=== PATIENT | male | born 2000 | race Caucasian/White ===

== ENCOUNTER 2023-02-27 17:55 | Outpatient (CLI) | payer OTHER, SELFPAY ==
[2023-02-27 23:36] LABS: Chlamydia DNA Amplified* NOT DETECTED (No Detected); GC DNA Amplified* NOT DETECTED (No Detected)
== END 2023-02-27 17:56 | disposition home or self-care (01) ==
LOC: NFLDUCREF 17:56
PROVIDERS: Visit Provider Nurse Practitioner
DX: N48.29 Other inflammatory disorders of penis (principal)
CPT/HCPCS: 87491; 87591

== ENCOUNTER 2023-04-26 12:09 | Emergency (ER) | payer OTHER, SELFPAY ==
[2023-04-26 12:11] VITALS: BP 146/83; PULSE 102; RESP 18; TEMP 37.9; O2SAT 98; BMI 30.6
--- NOTE | 2023-04-26 13:33 | ED_ITS ---
HPI - General Adult General Date Seen: 04/26/23 Chief complaint: Urogenital Problems, Male Stated complaint: genital pain Time Seen by Provider: 04/26/23 13:28 History of Present Illness HPI narrative: 22-year-old male who presents to ER today for evaluation of multiple concerns. He has a history of balanitis and has been and is experiencing redness and inflammation of the skin at the base of the glans of his penis for the past couple of months. He recalls that he has had balanitis about a year ago and was treated with a 2 week course of antifungals which did not help. Subsequently had follow-up with his regular doctor (through the [facility] in [place]) emergency prescribed something that started with a Tri, that also did not work. He has not had any ulcers or blisters on his penis. No pain. No urethral discharge. No trauma. He is not currently sexually active and has not been for many months. He also notes that he has had a small lump on the posterior aspect of his right testicle that have been there for a year or 2. He recalls that he had an ultrasound for that done at the ER in [place] and was told it was a ?cyst? on the testicle. That still there and may have gotten slightly bigger in the past month or 2, since . Also for the past few weeks he has noted a small white lump on the skin on the right side of his scrotum.. After his most recent urgent care visit he was told to follow-up primary care and Urology for recheck but did not do so. He is more concerned now because the lump on his testicles not going away and the redness on the glans of his penis isn't going away. He actually called his clinic today to arrange an appointment but then decided to come here. He is worried that the lump on his scrotum might affect future fertility. None of his symptoms are worse today than the past couple of weeks, he is just concerned about them and does not want anything to deteriorate. He is not actually having any testicular or scrotal pain today. He was seen in the urgent care in February 2023 and diagnosed with balanitis. Last intercourse had been about 9 months prior to that visit. He had STI screening done in the urgent care and was negative for gonorrhea and chlamydia. Urinalysis was normal. Recommended topical clotrimazole cream twice daily for 2 weeks. He had a previous visit to the ER in March 2022. Scrotal ultrasound from 03/14/2022 from [facility] ([facility] FINDINGS: Right testicle: 3.5 centimeter x 2.7 centimeter x 1.7 centimeter. Normal echotexture. No masses. Right-sided testicular microlithiasis. Normal arterial and venous and blood flow using Doppler and spectral waveform analysis. ? Left testicle: 0.7 centimeter x 2.5 centimeters x 1.8 centimeter. Normal echotexture. No masses. Sided testicular microlithiasis. Normal arterial and venous and blood flow using Doppler and spectral waveform analysis. ? Epididymis: 7 millimeter right epididymal cyst. Normal blood flow. ? Other: No sign of hydrocele. No sign of varicocele. Scrotal wall is normal. ? IMPRESSION: Bilateral testicular microlithiasis. ? No evidence for testicular masses or testicular torsion. ? 7 millimeter epididymal cyst. Related Data Previous Rx's Medication Instructions Recorded hydrocortisone 1 % topical cream 1 applic topical BID PRN 14 days 04/26/23 #28.35 grams Allergies Allergy/AdvReac Type Severity Reaction Status Date / Time No Known Drug Allergies Allergy Verified 04/26/23 12:18 [facility] Social History Smoking Status: Smoker, status unknown Do you use any of these nicotine containing products: None Second hand tobacco smoke exposure: No How often do you have a drink containing alcohol: never How often do you have six or more drinks on one occasion: Never AUDIT-C Alcohol total score: 0 Non-prescribed substance use: denies use service: No Exam Narrative: Exam Narrative: Constitutional: Appears well-developed and well-nourished. Alert. Conversant. Non toxic. HENT: Head: Atraumatic. Nose: Nose normal. Mouth/Throat: Oral mucosa is clear and moist. no trismus. Eyes: Conjunctivae normal. EOM normal. Pupils equal, round, and reactive to light. No scleral icterus. Neck: Normal range of motion. Neck supple. No tracheal deviation present. Cardiovascular: Normal rate, regular rhythm. Pulmonary/Chest: Effort normal. No stridor. No respiratory distress. Abdominal: Soft.No distension. No mass. No tenderness. No rebound. No guarding. : No inguinal masses. No inguinal tenderness. No inguinal adenopathy. Circumcised penis. There is no chancres or vesicles or rash. There is very subtle erythema affecting a small rim of tissue on the dorsal surface of the glans of the penis. This could be mild balanitis. No purulent discharge. External urethra is normal. Ventral surface of the penis is normal. Inspection of the scrotum reveals a small 1 x 2 mm white papule on the skin consistent with an ingrown hair. There is no evidence for any surrounding cellulitis or abscess. Palpation of the testicles reveals bilaterally descended testicles but both seem to be little bit high in the scrotum. I have difficulty palpating the right scrotal mass until the patient points it out and there is a small pea- sized nontender nodule adjacent to the patient's right epididymis (which would correlate on the epididymal cyst noted on ultrasound last year through ). No other palpable lesions. No testicular tenderness or scrotal pain. Perineum is normal. Medial thighs are normal. Musculoskeletal: RUE: Normal range of motion.No deformity LUE: Normal range of motion. No deformity RLE: Normal range of motion. No edema. No deformity LLE: Normal range of motion. No edema. No deformity Lymph: No inguinal adenopathy. Neurological: Alert and oriented to person, place, and time. Normal strength. CN II-VII intact. No sensory deficit. GCS eye subscore is 4. GCS verbal subscore is 5. GCS motor subscore is 6. Normal coordination Skin: Skin is warm and dry. No rash noted. No pallor. Normal capillary refill. Psychiatric: Normal mood. Normal affect. Const: Vital Signs, click to edit/add: Vital Signs - 24 hr 04/26/23 12:11 Temperature 100.3 F H Pulse Rate [Pulse Oximeter] 102 H Respiratory Rate 18 Blood Pressure [Ri ght Upper Arm] 146/83 H Pulse Oximetry 98 Oxygen Delivery Me thod Room Air Course Vital Signs Vital signs: Initial Vital Signs Temperature 100.3 F H 04/26/23 12:11 Temperature Source Temporal Artery Scan 04/26/23 12:11 Pulse Rate 102 H 04/26/23 12:11 Respiratory Rate 18 04/26/23 12:11 Blood Pressure 146/83 H 04/26/23 12:11 Blood Pressure Mean 104 04/26/23 12:11 Blood Pressure Position Sitting 02/15/24 12:11 Pulse Oximetry 98 04/26/23 12:11 Oxygen Delivery Method Room Air 04/26/23 12:11 Vital Signs Temperature 100.3 F H 04/26/23 12:11 Pulse Rate 102 H 04/26/23 12:11 Respiratory Rate 18 04/26/23 12:11 Blood Pressure 146/83 H 04/26/23 12:11 Pulse Oximetry 98 04/26/23 12:11 Oxygen Delivery Method Room Air 04/26/23 12:11 Temperature 100.3 F H 04/26/23 12:11 Pulse Rate 102 H 04/26/23 12:11 Respiratory Rate 18 04/26/23 12:11 Blood Pressure 146/83 H 04/26/23 12:11 Pulse Oximetry 98 04/26/23 12:11 Oxygen Delivery Method Room Air 04/26/23 12:11 Medical Decision Making MDM Narrative Medical decision making narrative: 22-year-old male with multiple complaints and around his genitals. 1. His most acute complaint is that he has noted a small white papule on the skin of his scrotum that is been there for the past couple weeks. Clinical exam is consistent with an ingrown hair. There is no evidence for any abscess or cellulitis or scrotal infection. No evidence for Mónica's gangrene. Reassurance provided. Recommended watchful waiting. 2. He has also had a small nodule (diagnosis an epididymal cyst on ultrasound in March 2022) affecting his right testicle. It has been there for the past year to. He has not yet followed up with urology. He is not having any new pain in the testicle or other symptoms to suggest epididymitis, orchitis, or torsion. At this point I do not think he needs repeat ultrasound. He has already had normal urinalysis than STD testing. With no acute change in that epididymal cyst I doubt that would represent an epididymal abscess. At this point no need for any new antibiotics or immediate surgical intervention. Encouraged him to follow up with Urology, as been had recommended the past. 3. He is also concerned because he has some redness at the base of the glans of his penis that is been there for the past couple of months. Clinical impression could represent possible balanitis. There is no purulent discharge or any other clear evidence for active infection. He has already failed a course of treatment with topical antifungal therapy. Try him on topical corticosteroid cream-1% hydrocortisone twice daily for 2 weeks. Recommend close outpatient follow-up with primary and ultimate follow-up with urology. If this does not respond to steroid therapy, may need further evaluation by specialist. He says he has already been told that he might need to see a investor relations analyst. He is not currently sexually active. He has had 2- STD screens over the past year. At this point would not repeat STD testing. Patient in full agreement.. Discharge Plan Discharge Clinical Impression: Epididymal cyst, Balanitis Patient Disposition: Home, Self-Care Condition: Stable Instructions: Maryan (ED) Additional Instructions: As we discussed, please call your regular doctor today to arrange a follow-up appointment so you can get a referral to Urology. Please see a urologist as soon as possible to recheck for the epididymal cyst on your right testicle. They may want to do a follow-up ultrasound, and to monitor it to make sure it does not grow in the future. You can ask the urologist if there are options for surgical removal of the cyst For the inflammation around the glans of the penis, use the hydrocortisone cream twice daily for 2 weeks. Prescriptions: New hydrocortisone 1 % cream 1 applic topical BID PRN14 Days Qty: 28.35 0RF Follow Up/Referrals: Provider,Not a Local [Primary Care Provider] - Stand Alone Forms: [facility] Info Instructions
== END 2023-04-26 14:57 | disposition home or self-care (01) ==
PROVIDERS: Emergency Provider Emergency Medicine
DX: N48.1 Balanitis (principal)
CPT/HCPCS: 99282; 99283

== ENCOUNTER 2024-09-03 07:39 | Emergency (ER) | payer BC, SELFPAY ==
--- OUTSIDE RECORDS SUMMARY | 2024-09-03 07:41 | XMS_ITS | Clinical Summary ---
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 For routine questions regarding patient records, call [phone] during business hours, M-F 8:00 AM - 5:00 PM Central Time. Record requests for emergency care only can be directed to [phone] at any time.[facility] Allergies Active Allergy Reactions Criticality Noted Date Comments Pollen Extracts Other (see comments) Medium 11/21/2014 patient takes Loratadine but does not Medications * This document contains information received from the source organization and may not represent a complete record from that organization. ketoconazole (Nizoral) 2 % shampoo Apply 1 Application topically 3 (three) times a week. Apply to damp skin, lather, leave on 5 minutes, and rinse 120 mL 4 Active Active Problems No known active problems Immunizations Immunization Administration Dates Next Due 9vHPV 05/02/2017,04/10/2016 DTaP (Infanrix, [employer]) 08/28/2007,01/2003,2002,2002 DTaP / Hib 12/14/2003 DTaP, Unspecified 01/20/2003,2002,09/23/19 03 HepA Pediatric/Adolescent 07/20/2009,10/29/2008 HepB Pediatric/Adolescent 05/19/2003 Hib-HepB 2002,2002 IPV 08/28/2007, 4,2002,2002 Influenza TIV (IM) 12/02/2014, 3,12/13/2011,2007,02/01/2007 Influenza, Seasonal, Injectable 12/03/19 15,12/10/2012,12/13/2011,2007,02/01/2007 MCV4 (Menactra)(Discontinued) 10/21/2019, 014 MCV4 (Menveo) 07/24/2013 MMR 08/28/2007,09/01/2003 MenB (BEXSERO) 01/24/2022,10/21/2019 PCV20 01/24/2022 PCV7 (discontinued) 12/14/2003, 3,2002,2002 Tdap 09/03/2012 MIL 08/28/2007,09/01/2003 influenza trivalent vaccine (6 months and older)(PF) 12/13/2010,11/27/2008 influenza vaccine quad (FLUZONE/FLUARIX) (6 months and older)(PF) 01/24/2022,01/14/2020,04/10/2016,2013 Social History Tobacco Use Types Packs/Day Years Used Date Smoking Tobacco: Some Days Cigarettes E-cigarettes Last attempt ed to quit: 06/12/2018 Tobacco Cessation:Ready to Q uit: Not Asked; Counseling Given: Not Answered Alcohol Use Standard Drinks/Week Comments Not Currently 0 (1 standard drink = 0.6 oz pur e alcohol) Sex and Gender Information Value Date Recorded Sex Assigned at Not on file 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 Gender Identity Not on file Sexual Orientation Not on file Last Filed Vital Signs Vital Sign Reading Time Taken Comments Blood Pressure 136/68 07/24/2023 3:10 PM CDT Pulse 72 07/24/2023 3:10 PM CDT Temperature 36.9 C (98.4 F) 07/24/2023 3:10 PM CDT Respiratory Rate 18 07/24/2023 3:10 PM CDT Oxygen Saturation 99% 01/24/2022 1:43 PM 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 Inhaled Oxygen Concentration - - Weight 108 kg (238 lb 8.6 oz) 07/24/2023 3:10 PM CDT Height 184 cm (6' 0.44) 07/24/2023 3:10 PM CDT Body Mass Index 31.96 07/24/2023 3:10 PM CDT Plan of Treatment Health Maintenance Due Date Last Done Comments Hepatitis C Screening 2002 COVID-19 Vaccine (1 - 2023-2 5 season) 2023 Influenza Vaccine (#1) 2023 , 01/14/2020, 04/10/2016, Additional history exists Depression Screening (Annual PHQ-2) 03/12/2024 Tobacco Cessation counseling 10/03/2024 10/04/2023, 01/24/2022 DTaP,Tdap,and Td Vaccines (8 - Td or Tdap) 05/21/2033 05/22/2023, 09/03/2012, 08/28/2007, Additional history exists Hepatitis B Vaccines Completed 05/19/2003, 2002, 2002 IPV Vaccines Completed 08/28/2007, 11/2003, 2002, Additional history exists HPV Vaccines Completed 05/02/2017, 04/10/2016 Meningococcal Vaccine Completed 10/21/2019 , 07/24/2013, 07/24/2013 MenB Vaccine Completed 01/24/2022, 10/21/2019 Pneumococcal vaccine (0-49 years) Completed 01/24/2022, 12/14/2003, 01/20/2003, Additional history exists Insurance [facility] Care Teams 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
[2024-09-03 07:51] VITALS: BP 126/84; PULSE 77; RESP 18; TEMP 36.4; O2SAT 99; BMI 30.2
--- NOTE | 2024-09-03 08:00 | ED_ITS ---
HPI - General Adult General Date Seen: 09/03/24 Chief complaint: Arrhythmia/Palpitations Stated complaint: rechecked on his heart palpitations Time Seen by Provider: 09/03/24 07:52 History of Present Illness HPI narrative: 24-year-old male presenting to the ER today with concern for palpitations and anxiety. Patient reports that he has no trouble with palpitations and occasional extra heartbeat where he feels his heart beating hard like a door slamming N/C and side of his chest and then pausing. This happens occasionally and never in runs. It has been going on for a few years, perhaps 3 or 4 years. He is not really sure. It has been getting worse lately and in particular he notes that when he sleeping. He says he is really having trouble sleeping because when he feels his heart beating irregularly he gets anxious and has a panic attack. He has already had a workup through his doctor's office. He does not really know his doctor's name or which office there through but with questioning were able to determine that his primary care provider is actually at the [facility] here in [place]. He thinks he had a ZIO patch and some labs a month or 2 ago. Says that his doctor told him that the ZIO patch showed that he was having ?palpitations? but no arrhythmias. He thinks his labs were probably normal. He was given a prescription for parental all that he could use as needed. He does not really like taking pills so has not been taking it. For the past several days he has been more anxious about his palpitations and feeling more at night so he has been having trouble sleeping and as result feels very unenergetic and down during the day. He set up to have an echocardiogram which is scheduled for a couple of weeks but he so worried about his palpitations he does not think he can wait. Although he does not like taking pills he did take a propranolol this morning before coming in and now feels like his palpitations are gone. I was able to access the patient's records through [facility] [employer] care link. It looks like he had a Zio patch that resulted on July 25. Per the report of that Zio patch he had no episodes of ventricular fibrillation, no long pauses, no AV block, no atrial fibrillation. He had a minimal heart rate of 41 and a maximum heart rate of 174 with an average heart rate of 87. Predominant underlying rhythm was sinus. He had isolated supraventricular ectopies less than 1% of the time with isolated supraventricular couplets and supra ventricular triplets. Also a few isolated ventricular ectopies. He had labs on August 11. Sodium 139, potassium 5.1, chloride 104, bicarb 27, BUN 19, creatinine 0.87, calcium 9.8, glucose 92. WBC 6.8, hemoglobin 17.4, platelet count 280. He had nonreactive hepatitis-C antibody, nonreactive HIV 1 and 2, TSH was normal at 1.99. He had an EKG on 07/14/2024. It shows sinus rhythm with marked sinus arrhythmia. Rate was 88. WA interval 136. No delta waves. No ST segment elevation or depression. QTC was 430. I do not see any PACs or PVCs on this EKG. Related Data Home Medications ?Medication ?Instructions ?Recorded ?Confirmed propranolol 10 mg tablet mg PO 09/03/24 Previous Rx's ?Medication ?Instructions ?Recorded metoprolol succinate 25 mg 12.5 mg (1/2 x 25 mg) PO HS #14 09/03/24 tablet,extended release 24 hr tabs Allergies Allergy/AdvReac Type Severity Reaction Status Date / Time No Known Drug Allergies Allergy Verified 08/18/24 09:24 [facility] Social History Smoking Status: Smoker, status unknown Do you use any of these nicotine containing products: None Second hand tobacco smoke exposure: No How often do you have a drink containing alcohol: never How often do you have six or more drinks on one occasion: Never AUDIT-C Alcohol total score: 0 Non-prescribed substance use: denies use service: No Exam Narrative: Exam Narrative: Constitutional: Appears well-developed and well-nourished. Alert. Conversant. Non toxic. HENT: Head: Atraumatic. Nose: Nose normal. Mouth/Throat: Oral mucosa is clear and moist. no trismus. Pharynx normal. Tonsils symmetric. No tonsillar enlargement, erythema, or exudate. Eyes: Conjunctivae normal. EOM normal. Pupils equal, round, and reactive to light. No scleral icterus. Neck: Normal range of motion. Neck supple. No tracheal deviation present. Thyroid normal. Cardiovascular: Normal rate, regular rhythm. No gallop. No friction rub. No murmur heard. Symmetric radial artery pulses Pulmonary/Chest: Effort normal. No stridor. No respiratory distress. No wheezes. No rales. No rhonchi . No tenderness. Abdominal: Soft. Bowel sounds normal. No distension. No mass. No tenderness. No rebound. No guarding. Musculoskeletal: RUE: Normal range of motion. No tenderness. No deformity LUE: Normal range of motion. No tenderness. No deformity RLE: Normal range of motion. No edema. No tenderness. No deformity LLE: Normal range of motion. No edema. No tenderness. No deformity Neurological: Alert and oriented to person, place, and time. Normal strength. CN II-VII intact. No sensory deficit. GCS eye subscore is 4. GCS verbal subscore is 5. GCS motor subscore is 6. Normal coordination Skin: Skin is warm and dry. No rash noted. No pallor. Normal capillary refill. Psychiatric: Normal mood. Flat affect. Endorses a lot of anxiety last night when he was feeling palpitations inside now is for endorsing frustration. Const: Vital Signs, click to edit/add: Vital Signs - 24 hr 09/03/24 07:51 Temperature 97.6 F Pulse Rate [Pulse Oximeter] 77 Respiratory Rate 18 Blood Pressure [Ri ght Upper Arm] 126/84 Pulse Oximetry 99 Oxygen Delivery Me thod Room Air Course Vital Signs Vital signs: Initial Vital Signs Temperature 97.6 F 09/03/24 07:51 Temperature Source Temporal Artery Scan 09/03/24 07:51 Pulse Rate 77 09/03/24 07:51 Respiratory Rate 18 09/03/24 07:51 Blood Pressure 126/84 09/03/24 07:51 Blood Pressure Mean 98 09/03/24 07:51 Blood Pressure Position Sitting 09/03/24 07:51 Pulse Oximetry 99 09/03/24 07:51 Oxygen Delivery Method Room Air 09/03/24 07:51 Vital Signs Temperature 97.6 F 09/03/24 07:51 Pulse Rate 77 09/03/24 07:51 Respiratory Rate 18 09/03/24 07:51 Blood Pressure 126/84 09/03/24 07:51 Pulse Oximetry 99 09/03/24 07:51 Oxygen Delivery Method Room Air 09/03/24 07:51 Temperature 97.6 F 09/03/24 07:51 Pulse Rate 77 09/03/24 07:51 Respiratory Rate 18 09/03/24 07:51 Blood Pressure 126/84 09/03/24 07:51 Pulse Oximetry 99 09/03/24 07:51 Oxygen Delivery Method Room Air 09/03/24 07:51 Medical Decision Making MDM Narrative Medical decision making narrative: This patient presents for evaluation of palpitations. Initial ECG shows normal sinus rhythm and no dysrhythmogenic abnormality such as WPW, prolonged QT, Brugada syndrome, and no ischemia. He has already had an outpatient Zio patch which showed no dangerous arrhythmias but did show infrequent PACs and PVCs cheek. He is already been prescribed propranolol by his PCP. He was having a lot of these extra beats overnight last night so he took propranolol this morning prior to coming in and now the extra beats are gone. As a result his EKG here in the ER is normal with no PACs or PVCs. He does not like the way the propranolol makes him feel. He also did in general does not like taking any medications. He came to the ER because he just could not sleep last night and could go to work today and he is frustrated that his extra heartbeats are still there. A broad differential diagnosis was considered including SVT, Atrial fibrill ation, ventricular arrhythmia, thyroid disease, acute electrolyte abnormality, drugs/medications, caffeine intake or other stimulants, medication side effect, anemia, heart disease, PE, among others. He has already had outpatient workup with labs that were normal therefore repeating them here today is not likely to be beneficial. He does not drink caffeine or take any stimulants. He does use marijuana fairly regularly. It sounds like he used to smoke heavily but has been cutting back in recent years. I advised him to try cutting out marijuana altogether to see if that would help, and perhaps after he ceases, these extra heartbeats will go away entirely. I recommend that he follow-up with his PCP for recheck. He is scheduled to have an outpatient echo. He actually had 1 a couple years ago that was normal so I think overall suspicion for structural heart disease or hypertrophic cardiomyopathy is low. However would be reasonable to get a repeat echo given current symptoms. In discussion with the patient we decided that we could try different beta- chester. He feels like the propranolol makes him feel too tired and too weak. Of note his EKG shows a heart rate of 67 this morning and his average heart rate when he was wearing the Zio patch was 81. This does suggest some beta-chester induced decreased heart rate which may be causing his fatigue. Try switching him for parietal to metoprolol at a low dose. Patient understands that he needs to follow up with his PCP to see if this new beta-chester is working better (or not) and have further medications/dose adjustments. Patient also notes that there is significant underlying anxiety that gets triggered when he feels the palpitations. At this point rather than putting him on anxiety med, will focus on trying to suppress extra heartbeats with beta- blockers. The workup and exam here in ED shows not specific cause of the patient's palpitations, and no risks factors to warrant admission. Clinical judgement sugg ests that supportive outpatient management is indicated. He will follow up with his PCP. ECG Data Attestation: I personally reviewed and interpreted this ECG as follows: Interpretation: Normal sinus rhythm Rate: 67 WA: 146 no delta waves. QRS axis: Normal axis. No pathologic Q-waves. ST segment/T wave: No ST segment elevation or depression. QTc: 401 Discharge Plan Discharge Clinical Impression: Palpitations Patient Disposition: Home, Self-Care Condition: Stable Instructions: Heart Palpitations (DC), Premature Ventricular Contractions (ED), Premature Atrial Contractions (ED) Additional Instructions: As we discussed, monitor your symptoms carefully and if you have any worsening symptoms or problems, come back to the ER right away. We will try to suppress these palpitations by beta-blockers. Will have him switch from propranolol (he does not like the feeling he gets when he takes a) and try a low-dose of metoprolol instead. Please follow-up with your regular doctor the [facility] as soon as possible to recheck to see how you are doing. Your doctor may have to make further adjustments to her medications or change the dose to help get you feeling better. Please stop using marijuana and try to be completely sober from marijuana for a couple of months. This may help prevent or reduce the frequency of your palpitations. Prescriptions: New metoprolol succinate 25 mg tablet extended release 24 hr 12.5 mg PO HS Qty: 14 0RF No Action propranolol 10 mg tablet PO Follow Up/Referrals: Provider,Not a Local [Primary Care Provider, Family Practice] Stand Alone Forms: Work/School Release, MyHealth Info Instructions
--- OUTSIDE RECORDS SUMMARY | 2024-09-03 09:24 | XMS_ITS | Clinical Summary ---
Author Organization [facility] Address [address] [place] [address] Care Team Providers Care Aerospace Technician Name Role Phone Juan F Penn MD Primary Care P rovider Allergies Active Allergy Reactions Criticality Noted Date Comments Pollen Extracts Other - Describe In Comment Field Medium 11/21/2014 patient takes Loratadine but does not Medications ketoconazole 2% shampoo 2 % shampoo Apply 1 Application topically to affected area(s). 4 Active propranoloL 10 mg tabletIndicatio ns:Palpitations Take 1 Tablet (10 mg) by mouth one time if needed (take up to 3x per day if palpiations or anxious) for up to 1 dose. 30 Tablet 5 Active Active Problems Problem Noted Date Diagnosed Date Snoring 08/11/2024 Palpitations 08/11/2024 Encounters Date Type Department Care Team Description 09/02/[address] [facility] [address] [place] [address] Juan F Penn MD Questions (Propranolol ) 09/02/[address] [facility] [address] [place] [address] Juan F Penn MD Palpitations 08/12/[address] [facility] [address] [place] [address] Juan F Penn MD Results 08/11/2024 7:30 AM CDT Office Visit [facility] [address] [facility] [place] [address] Juan F Penn MD Results (Zio patch) 08/11/2024 Travel 08/07/2024 Patient Outreach [facility] Care Management - Care Management Navigation/[facility] [address] [place] [address] [facility] Navigation 08/07/[address] [facility] [address] [place] [address] Koki Raza PA Results [address] [facility] [address] [facility] [place] [address] Koki Raza PA 1 scan: (1-Ord) NFLD-EKG-5.5.25 07/14/2024 10:40 AM CDT Office Visit [facility] [address] [facility] [place] [address] Koki Raza PA Palpitations 07/14/2024 8:15 AM CDT Office Visit [address] [place] [address] 07/14/2024 Travel 07/14/[address] [facility] [address] [place] [address] Clinic, No Pcp Or Palpitations from Last 3 Months Immunizations Immunization Administration Dates Next Due DTaP 08/28/2007, 3,2002,09/22 DTaP-HIB (TriHIBIT) 12/14/2003 Dtap Unspecified Formulation 01/20/2003,11/19/19 03,2002 HIB-HepB (Comvax) 2002,2002 HPV 9 (Gardasil 9) 05/02/2017,04/10/2016 Hepatitis A (Peds) 07/20/2009,10/29/2008 Hepatitis B (Peds) 05/19/2003 Inactivated Polio Vaccine 08/28/2007,11/2003,2002,09/22 Influenza, IIV3 (Age 6-35 mos) 12/13/2010,2008 Influenza, IIV3 (Age >=3 years) 12/03/19 15,12/10/2012,12/13/2011,01/23,02/01/2007 Influenza, IIV4 01/24/2022,,04/10/2016,01/07 MENINGOCOCCAL VACCINE 2 VIAL 2MO-55YO (MENVEO) 07/24/2013 MMR 08/28/2007,09/01/2003 Meningococcal B 01/24/2022,10/21/2019 Meningococcal Vaccine (Menactra) 10/21/2019,07/10 Pneumococcal Conj 20-valent (Prevnar 20) 01/24/2022 Pneumococcal conj 7-Valent (Prevnar 7) 1 ,01/20/2003,2002,09/22 Tdap 05/22/2023,09/03/2012 Varicella Vaccine 08/28/2007,09/01/2003 Family History Medical History Relation Name Comments pacemaker Maternal Grandfather Relation Name Status Comments Maternal Grandfather Social History Tobacco Use Types Packs/Day Years Used Date Smoking Tobacco: Former Cigarettes Passive Smoke Exposure: Past Smokeless Tobacco: Never Tobacco Cessation:Counseling Given: Not Answered Comments:smoked from 14 years old to 17 years old Alcohol Use Standard Drinks/Week Comments Not Currently 0 (1 standard drink = 0.6 oz pur e alcohol) PHQ-2 Answer Date Recorded PHQ-2 TOTAL SCORE 0 08/11/2024 Social Connections Answer Date Recorded Do you often feel lonely or isolated from those around you? 0 07/14/2024 Financial Resource Strain Answer Date R ecorded Difficulty of Paying Living Expenses 2 07/14/2024 Difficulty of Paying Living Expenses 1 07/14/2024 Food Insecurity Answer Date Recorded Do you worry your food will run out before you are able to buy more? 1 07/14/2024 Transportation Needs Answer Date Record ed Does lack of transportation keep you from medica l appointments? 1 07/14/2024 Does lack of transportation keep you from work, meetings or getting things that you need? 1 07/14/2024 Housing Stability Answer Date Recorded What is your housing situation today? 1 07/14/2024 Utilities Answer Date Recorded Do you have trouble paying f or utilities (for example, heat, electricity, water, phone)? 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 Gender Identity Not on file Sexual Orientation Not on file Obstetrics History Last Filed Vital Signs Vital Sign Reading Time Taken Comments Blood Pressure 132/81 08/11/2024 7:37 AM CDT Pulse 71 08/11/2024 7:37 AM CDT Temperature 37 C (98.6 F) 12/18/2022 5:26 PM CDT Respiratory Rate 20 12/18/2022 5:26 PM CDT Oxygen Saturation 98% 08/11/2024 7:37 AM CDT Inhaled Oxygen Concentration - - Weight 106.1 kg (234 lb) 08/11/2024 7:37 AM CDT Height 188 cm (6' 2) 03/13/2024 3:37 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 [address] [place] [address] Juan F Penn MD [address] [place] [address] Health Maintenance Due Date Last Done Comments COVID-19 vaccine series ( season) 2023 Influenza Vaccine (Season Ended) 2024 01/24/2022, 01/14/2020, 04/10/2016, Additional history exists BMI (ht and wt on same day) for age 18+ 03/13/2025 03/13/2024 Depression screening for age 12+ 08/11/2025 08/11/2024, 05/22/2023 Tetanus booster 05/21/2033 05/22/2023, 09/03/2012 Hepatitis B series for 19+ Completed 05/18, 2002, 2002 HPV series for age 9-26 Completed 05/02/2017, 04/10 Pneumococcal series for age 6-49 Aged Out 01/24/2022, 12/14/2003, 01/20/2003, Additional history exists No longer eligible based on patient's age to complete this topic Tdap Completed 05/22/2023, 09/03/2012 HIV for age 15-65 Completed 08/11/2024 Hepatitis C screening for age 18-79 Completed 08/11/2024 Procedures Procedure Name Priority Date/Time Associated Diagnosis Comments TSH WITH REFLEX Routine 08/11/2024 8:55 AM CDT Palpitations BASIC METABOLIC PANEL Routine 08/11/2024 8:55 AM CDT Palpitations CBC W PLT NO DIFF Routine 08/11/2024 8:5 5 AM CDT Palpitations ANTI HIV 1/2 Routine 08/11/2024 8:55 AM CDT Screening for HIV (human immunodeficiency virus) ANTI HCV Routine 08/11/2024 8:55 AM CDT Need for hepatitis C screening test EXTENDED HOLTER Routine 07/16/2024 Palpitations EKG 12 LEAD Routine 2024 11:16 AM CDT Palpitations MS READING EKG - NO CHARGE, COMP ONLY Routine 2024 11:15 AM CDT Palpitations from Last 3 Months Results * TSH WITH REFLEX (08/11/2024 8:55 AM CDT) TSH W/REFLEX TO FT4 1.99 0.40 - 4.50 mIU/L [facility] Blood BLOOD SPECIMEN / Unknown 08/11/2024 8:55 AM CDT 08/11/2024 8:57 AM CDT Juan F Penn MD CHEMISTRY Final Result [facility] [address] [place] [address], [place] [phone] [facility] [address] [place] [address] * ANTI HCV (08/11/2024 8:55 AM CDT) Pathologist [facility] HEPATITIS C ANTIBODY NON-REACTI VE NON-REACT MELIA [facility] Comment: HCV antibody was non-reactive. There is no laboratory evidence of HCV infection. In most cases, no further action is required. However, if recent HCV exposure is suspected, a test for HCV RNA (test code 90225) is suggested. For additional information please refer to http://education.Markit/faq/DRS75h2 (This link is being provided for informational/ educational purposes only.) Blood BLOOD SPECIMEN / Unknown 08/11/2024 8:55 AM CDT 08/11/2024 8:57 AM CDT Juan F Penn MD SEND OUTS Final Result Performing Organization Address City/[facility]/ZIP Co de Phone Number [facility] [address] [place] [address], [facility] [address] [place] [address] * (ABNORMAL) CBC W PLT NO DIFF (08/11/2024 8:55 AM CDT) [facility] WHITE BLOOD CELL COUNT 6.8 3.8 - 10.8 Thousand/u L [facility] RED BLOOD CELL COUNT 5.32 4.20 - 5.80 Million/uL [facility] HEMOGLOBIN 17.4(H) 13.2 - 17.1 g/dL [facility] HEMATOCRIT 51.5(H) 38.5 - 50.0 % [facility] MCV 96.8 80.0 - 100.0 fL [facility] MCH 32.7 27.0 - 33.0 pg [facility] MCHC 33.8 32.0 - 36.0 g/dL [facility] Comment: For adults, a slight decrease in the calculated MCHC value (in the range of 30 to 32 g/dL) is most likely not clinically significant; however, it should be interpreted with caution in correlation with other red cell parameters and the patient's clinical condition. RDW 12.2 11.0 - 15.0 % [facility] PLATELET COUNT 280 140 - 400 Thousand/u L [facility] MPV 10.1 7.5 - 12.5 fL [facility] Blood BLOOD SPECIMEN / Unknown 08/11/2024 8:55 AM CDT 08/11/2024 8:57 AM CDT Juan F Penn MD HEMATOLOGY Final Result [facility] [address] [place] [address], [facility] [address] [place] [address] * ANTI HIV 1/2 [84187.0] (08/11/2024 8:55 AM CDT) HIV AG/AB, 4TH GEN NON-REACT MELIA NON-REACT MELIA [facility] Comment: HIV-1 antigen and HIV-1/HIV-2 antibodies were not detected. There is no laboratory evidence of HIV infection. PLEASE NOTE: This information has been disclosed to you from records whose confidentiality may be protected by state law. If your state requires such protection, then the state law prohibits you from making any further disclosure of the information without the specific written consent of the person to whom it pertains, or as otherwise permitted by law. A general authorization for the release of medical or other information is NOT sufficient for this purpose. For additional information please refer to http://education.Markit/faq/HJF482 (This link is being provided for informational/ educational purposes only.) The performance of this assay has not been clinically validated in patients less than 2 years old. Blood BLOOD SPECIMEN / Unknown 08/11/2024 8:55 AM CDT 08/11/2024 8:57 AM CDT Juan F Penn MD SEND OUTS Final Result [facility] [address] [place] [address], [facility] [address] [place] [address] * BASIC METABOLIC PANEL (08/11/2024 8:55 AM CDT) [facility] GLUCOSE 92 65 - 99 mg/dL [facility] Comment: Fasting reference interval UREA NITROGEN (BUN) 19 7 - 25 mg/dL [facility] CREATININE 0.87 0.60 - 1.24 mg/dL [facility] EGFR 125 > OR = 60 mL/min/1. 73m2 [facility] BUN/CREATININE RATIO SEE NOTE: 6 - 22 (calc) [facility] Comment: Not Reported: BUN and Creatinine are within reference range. SODIUM 139 135 - 146 mmol/L [facility] POTASSIUM 5.1 3.5 - 5.3 mmol/L [facility] CHLORIDE 104 98 - 110 mmol/L [facility] CARBON DIOXIDE 27 20 - 32 mmol/L [facility] ELECTROLYTE BALANCE 8 7 - 17 mmol/L (calc) [facility] CALCIUM 9.8 8.6 - 10.3 mg/dL [facility] Blood BLOOD SPECIMEN / Unknown 08/11/2024 8:55 AM CDT 08/11/2024 8:57 AM CDT Juan F Penn MD CHEMISTRY Final Result [facility] [address] [place] [address], [place] [phone] [facility] [address] [place] [address] * ZIO PATCH XT - weekly to monthly symptoms. (07/16/2024) [facility] ORD F inal Result * EKG 12 LEAD (2024 11:16 AM CDT) Koki RUBIO EKG ORD Final Result * MS READING EKG - NO CHARGE, COMP ONLY (2024 11:15 AM CDT) Koki RUBIO PB - PROVIDER READINGS Final Result from Last 3 Months Additional Health Concerns Infection Onset Date Last Indicated Rule-Out Influenza 01/23/2022 01/23/2022 Insurance [employer] Care Teams Aerospace Technician Relationship Specialty Start Date End Date Juan F Penn MD [address] [place] [address] PCP - General Family Practice 08/11/24
== END 2024-09-03 09:09 | disposition home or self-care (01) ==
LOC: ED 09:13
PROVIDERS: Emergency Provider Emergency Medicine
DX: R00.2 Palpitations (principal)
CPT/HCPCS: 93005; 99283; 99284

== ENCOUNTER 2025-03-05 18:03 | Emergency (ER) | payer BC, SELFPAY ==
--- OUTSIDE RECORDS SUMMARY | 2025-03-05 18:08 | XMS_ITS | Clinical Summary ---
Author Organization [employer] [facility] Address [address] [place] [address] Care Team Providers Care Snuff Blender Name Role Phone Juan F Penn MD Primary Care P rovider Allergies Active AllergyReactionsCriticalityNoted DateCommentsPollen ExtractsOther - Describe In Comment AeirdDtndrd31/12/2015 patient takes Loratadine but does not Medications MedicationSigDispense QuantityRefillsLast FilledStart DateEnd DateStatus ketoconazole 2% shampoo 2 % shampoo Apply 1 Application topically to affected area(s).4Active sertraline (ZOLOFT) 25 mg tablet Indications:DIMA (generalized anxiety disorder)Take 1-2 Tablets (25-50 mg) by mouth once daily in the morning. 30 Tablet 5Active hydrOXYzine HCL (ATARAX) 10 mg tablet Indications:DIMA (generalized anxiety disorder)Take 1 Tablet (10 mg) by mouth every 6 hours if needed for Anxiety. 30 Tablet 5Active metoprolol succinate (TOPROL XL) 25 mg Sustained-Release tablet Indications:PalpitationsTake 0.5 Tablets (12.5 mg) by mouth one time if needed (for palpitations). 7 Tablet 5Active Active Problems ProblemNoted DateDiagnosed TkjdMyjbuqr40/02/3497Fzcpiojadfqp27/02/2025 Immunizations ImmunizationAdministration DatesNext LsoLXbL2908/28/2007,01/20/2003,2002, 2002DTaP-HIB (TriHIBIT)12/14/2003Dtap Unspecified Rgugodrtvpk80/11/2003, 2002,2002HIB-HepB (Comvax)2002,2002HPV 9 (Gardasil 9) 05/02/2017,04/10/2016Hepatitis A (Peds)07/20/2009,10/29/2008Hepatitis B (Peds) 05/19/2003Inactivated Polio Nxflpgo3008/28/2007,05/19/2003,2002,2002 Influenza, IIV3 (Age 6-35 mos)12/13/2010,11/27/2008Influenza, IIV3 (Age >=3 years)12/02/2014,12/10/2012,12/13/2011,01/24/2008,02/01/2007Influenza, IIV4 01/24/2022,01/14/2020,04/10/2016,01/07/2014MENINGOCOCCAL VACCINE 2 VIAL 2MO-55YO (MENVEO)07/24/2013MMR08/28/2007,09/01/2003Meningococcal B103/26/2021,10/21/2019 Meningococcal Vaccine (Menactra)10/21/2019,07/24/2013Pneumococcal Conj 20-valent (Prevnar 20)2Pneumococcal conj 7-Valent (Prevnar 7)12/14/2003, 01/20/2003,2002,2002Tdap05/22/2023,09/03/2012Varicella Vaccine 08/28/2007,09/01/2003 Family History Medical HistoryRelationNameCommentspacemakerMaternal GrandfatherRelationName StatusCommentsMaternal Grandfather Social History Tobacco UseTypesPacks/DayYears UsedDateSmoking Tobacco: FormerCigarettesPassive Smoke Exposure: PastSmokeless Tobacco: Never Tobacco Cessation:Counseling Given: Not Answered Comments:smoked from 14 years old to 17 years old Alcohol UseStandard Drinks/WeekCommentsNot Currently0 (1 standard drink = 0.6 oz pure alcohol)PHQ-2AnswerDate RecordedPHQ-2 TOTAL HIMCE199/02/2025Social ConnectionsAnswerDate RecordedDo you often feel lonely or isolated from those around you?Financial Resource StrainAnswerDate RecordedDifficulty of Paying Living Brwmjjpn873/05/2025Difficulty of Paying Living Gqlwnwox016/05/2025 Food InsecurityAnswerDate RecordedDo you worry your food will run out before you are able to buy more?Transportation NeedsAnswerDate RecordedDoes lack of transportation keep you from medical appointments?Does lack of transportation keep you from work, meetings or getting things that you need?1 07/14/2024Housing StabilityAnswerDate RecordedWhat is your housing situation today?UtilitiesAnswerDate RecordedDo you have trouble paying for utilities (for example, heat, electricity, water, phone)?Sex and Gender InformationValueDate RecordedSex Assigned at BirthNot on fileLegal Sex Male01/23/2022 2:50 PM CSTGender IdentityNot on fileSexual OrientationNot on file Last Filed Vital Signs Vital SignReadingTime TakenCommentsBlood Hmmeaqie657/8507 7:54 AM CDT Oieey099309/26/2024 7:54 AM PRCQvhtubiojcf59 ??C (98.6 ??F)12/18/2022 5:26 PM CDT Respiratory Ryvd3705 5:26 PM CDTOxygen Qyrnwgiplo34%09/26/2024 7:54 AM CDTInhaled Oxygen Concentration--Wjwsfa493.4 kg (236 lb 12.8 oz)09/26/2024 7:54 AM ZIJMnjgma761 cm (6' 2)03/13/2024 3:37 PM CSTBody Mass Index30. 3:37 PM LACE INSPECTOR Plan of Treatment Health MaintenanceDue DateLast DoneCommentsCOVID-19 vaccine series ( season)2024Influenza Vaccine (#1), 01/14/2020, 04/10/2016, Additional history existsBMI (ht and wt on same day) for age 18+ Depression screening for age 12+/04/2024, 05/22/2023Tetanus /02/2024, 09/03/2012Hepatitis B series for 19+Bfpdrdiwb36/09/2004, 2002, 2002HPV series for age 9-45Completed 05/02/2017, 04/10/2016Pneumococcal series for age 6-49Aged Out01/24/2022, 12/14/2003, 01/20/2003, Additional history existsNo longer eligible based on patient's age to complete this topicHIV for age 15-16Izarlvxbl62/02/2025 Hepatitis C screening for age 18-94Oiggeafod35/02/2025 Procedures Procedure NamePriorityDate/TimeAssociated DiagnosisCommentsANTI HIV 1/2Routine 08/11/2024 8:55 AM CDT Screening for HIV (human immunodeficiency virus) ANTI NOXBtbhsbz41/02/2025 8:55 AM CDT Need for hepatitis C screening test from Last 3 Months or Most Recently Relevant to Health Maintenance Results * ANTI HCV (08/11/2024 8:55 AM CDT)ComponentValueRef RangeTest MethodAnalysis TimePerformed AtPathologist SignatureHEPATITIS C ANTIBODYNON-REACTIVE NON-REACTIVEQuest [facility] Memorial HospitaleComment: HCV antibody was non-reactive. There is no laboratory evidence of HCV infection. In most cases, no further action is required. However, if recent HCV exposure is suspected, a test for HCV RNA (test code 92682) is suggested. For additional information please refer to http://education.DashLuxe/faq/XMK60h5 (This link is being provided for informational/ educational purposes only.) Specimen (Source)Anatomical Location / LateralityCollection Method / Volume Collection TimeReceived TimeBloodBLOOD SPECIMEN / Kgedwrj4408/11/2024 8:55 AM CDT 08/11/2024 8:57 AM CDT Narrative Authorizing ProviderResult TypeResult StatusMicross Penn MDSEND OUTSFinal ResultPerforming OrganizationAddressCity/State/ZIP CodePhone Number [facility]aretribe [facility] [address] [facility] [address], [facility] [address] [place] [address] * ANTI HIV 1/2 [08496.0] (08/11/2024 8:55 AM CDT)ComponentValueRef RangeTest MethodAnalysis TimePerformed AtPathologist SignatureHIV AG/AB, 4TH GEN [id number] Diagnostics-[facility] HospitaleComment: HIV-1 antigen and HIV-1/HIV-2 antibodies were not detected. There is no laboratory evidence of HIV infection. PLEASE NOTE: This information has been disclosed to you from records whose confidentiality may be protected by state law. ??If your state requires such protection, then the state law prohibits you from making any further disclosure of the information without the specific written consent of the person to whom it pertains, or as otherwise permitted by law. A general authorization for the release of medical or other information is NOT sufficient for this purpose. ?? For additional information please refer to http://education.DashLuxe/faq/KHY433 (This link is being provided for informational/ educational purposes only.) The performance of this assay has not been clinically validated in patients less than 2 years old. Specimen (Source)Anatomical Location / LateralityCollection Method / Volume Collection TimeReceived TimeBloodBLOOD SPECIMEN / Qbxwutp1008/11/2024 8:55 AM CDT 08/11/2024 8:57 AM CDT Narrative Authorizing ProviderResult TypeResult StatusMicmercy health [facility] MDSEND OUTSFinal ResultPerforming OrganizationAddressCity/State/ZIP CodePhone Number [facility] [address] [facility] [place] [address], [place] [phone] [facility] [address] [place] [address] from Last 3 Months or Most Recently Relevant to Health Maintenance Insurance Care Teams Team MemberRelationshipSpecialtyStart DateEnd Date Juan F Penn MD [address] [place] [address] PCP - GeneralFamily Practice08/11/24
--- OUTSIDE RECORDS SUMMARY | 2025-03-05 18:08 | XMS_ITS | Clinical Summary ---
Author Organization [facility] Address [address] [place] [address] Care Team Providers Care Sales Representative [employer] Name Role Phone Elsewhere, Pcp Primary Care Provider Unavailabl e Source Comments Patient records contain information from all sites at [facility]. For routine questions regarding patient records, call [phone] during business hours, M-F 8:00 AM - 5:00 PM Central Time. Record requests for emergency care only can be directed to [phone] at any time.[facility] Allergies Active AllergyReactionsCriticalityNoted DateCommentsPollen ExtractsOther (see comments)Ajnkuj9511/21/2014 patient takes Loratadine but does not Medications * This document contains information received from the source organization and may not represent a complete record from that organization. MedicationSigDispense QuantityRefillsLast FilledStart DateEnd DateStatus ketoconazole (Nizoral) 2 % shampoo Apply 1 Application topically 3 (three) times a week. Apply to damp skin, lather, leave on 5 minutes, and rinse 120 mL 1104Active Active Problems No known active problems Immunizations ImmunizationAdministration DatesNext Vvi6kYTE60/21/2018,04/10/2016DTaP (Infanrix, [employer])08/28/2007,01/20/2003,2002,2002DTaP / Hib 12/14/2003DTaP, Egwdjkvtwmv93/11/2003,2002,2002HepA Pediatric/Fixfycxpqr40/11/2010,10/29/2008HepB Pediatric/Duufumnksn75/09/2004 Hib-HepB2002,2002IPV08/28/2007,05/19/2003,2002,2002 Influenza TIV (IM)12/02/2014,12/10/2012,12/13/2011,01/24/2008,02/01/2007 Influenza, Seasonal, Qxdwmitgcp65/23/2015,12/10/2012,12/13/2011,01/24/2008, 02/01/2007MCV4 (Menactra)(Discontinued)10/21/2019,07/24/2013MCV4 (Menveo) 07/24/2013MMR08/28/2007,09/01/2003MenB (BEXSERO)01/24/2022,10/21/2019PCV20 2PCV7 (discontinued)12/14/2003,01/20/2003,2002,2002Tdap 09/03/2012VAR08/28/2007,09/01/2003influenza trivalent vaccine (6 months and older)(PF)12/13/2010,11/27/2008influenza vaccine quad (FLUZONE/FLUARIX) (6 months and older)(PF)01/24/2022,01/14/2020,04/10/2016,01/07/2014 Social History Tobacco UseTypesPacks/DayYears UsedDateSmoking Tobacco: Some DaysCigarettes E-cigarettesLast attempted to quit: 06/12/2018 Tobacco Cessation:Ready to Q uit: Not Asked; Counseling Given: Not Answered Alcohol UseStandard Drinks/WeekCommentsNot Currently0 (1 standard drink = 0.6 oz pure alcohol)Sex and Gender InformationValueDate RecordedSex Assigned at Not on fileLegal OwpWpyj9504/14/2016 4:16 AM CSTGender IdentityNot on fileSexual OrientationNot on file Last Filed Vital Signs Vital SignReadingTime TakenCommentsBlood Ytvqdaxr273/68007/24/2023 3:10 PM CDT Nvorh4286/14/2024 3:10 PM XOCMkdfftplbib55.9 ??C (98.4 ??F)07/24/2023 3:10 PM CDTRespiratory Xniv932607/24/2023 3:10 PM CDTOxygen Vlcfdfibdc47%01/24/2022 1:43 PM CSTInhaled Oxygen Concentration--Wfjekq560 kg (238 lb 8.6 oz)07/24/2023 3:10 PM DJRUsrctt630 cm (6' 0.44)07/24/2023 3:10 PM CDTBody Mass Index31.96 07/24/2023 3:10 PM CDT Plan of Treatment Health MaintenanceDue DateLast DoneCommentsHepatitis C Gmuaclazr62/06/2003 Depression Screening (Annual PHQ-2)03/12/2024Tobacco Cessation counseling 5010/04/2023, 2COVID-19 Vaccine ( season)2024 Influenza Vaccine (#1)5103/26/2021, 01/14/2020, 04/10/2016, Additional history existsDTaP,Tdap,and Td Vaccines (8 - Td or Tdap), 09/03/2012, 08/28/2007, Additional history existsHepatitis B VaccinesCompleted 05/19/2003, 2002, 2002IPV FmkvavbeVtdixptun11/18/2008, 05/19/2003, 2002, Additional history existsHPV TjwcbvqlGlokhoada76/21/2018, 04/10/2016 Meningococcal RahqctoXydbkptjq79/11/2020, 07/24/2013, 07/24/2013MenB Vaccine Ydqkvcxgf06/15/2022, 10/21/2019Pneumococcal vaccine (0-49 years)Completed 01/24/2022, 12/14/2003, 01/20/2003, Additional history exists Insurance * Guarantor: Pasquale Nuñez TypeRelation to PatientDate of PhoneBilling AddressPersonal/XcrofdZlchmx38/29/1973 [address] [place] [address] Care Teams Team MemberRelationshipSpecialtyStart DateEnd Date Elsewhere, Pcp PCP - General07/03/21
[2025-03-05 18:12] VITALS: BP 130/86; PULSE 116; RESP 16; TEMP 38.2; O2SAT 96; BMI 31.9
--- NOTE | 2025-03-05 18:26 | ED_ITS ---
HPI - Fever General Chief Complaint: Fever Stated Complaint: +Covid, +flu A, dehydrated, cough, Time Seen by Provider: 03/05/25 18:07 History of Present Illness HPI Narrative: Patient is a 24-year-old gentleman who was seen a week ago for otitis media comes in today with ear pain. Patient was seen recently and was prescribed what sounds like my amoxicillin for his bilateral here infection. He did not take that medication. He has not been taking any Tylenol or Motrin. He tested hi mself for influenza a today after being sick for approximately a week and he is influenza A positive. He has had minimal cough he has general malaise body aches and fatigue. He does not feel like he is eating and drinking well enough would like some IV fluids. He has no stiff neck or headache. No other related symptoms. Related Data Allergies Allergy/AdvReac Type Severity Reaction Status Date / Time No Known Drug Allergies Allergy Verified 03/05/25 18:20 Review of Systems Status of ROS Reports: 10 or more systems reviewed and unremarkable except as noted in History and below PFSH PFS Social History Smoking Status: Smoker, status unknown Do you use any of these nicotine containing products: None Second hand tobacco smoke exposure: No How often do you have a drink containing alcohol: never How often do you have six or more drinks on one occasion: Never AUDIT-C Alcohol total score: 0 Non-prescribed substance use: denies use service: No Exam Narrative Exam Narrative: EXAM GENERAL: Patient appears comfortable and well. EYES: No scleral icterus. ENT: Dullness redness of the tympanic membranes bilaterally. THYROID: no thyroid nodules or thyromegaly. LYMPH: No supraclavicular or cervical lymphadenopathy. SKIN: Visible skin seen during exam normal or with benign process only. EXT: No dependent lower extremity pedal edema. HEART: Regular rate and rhythm with no murmurs, rubs, or gallops. LUNGS: Clear to auscultation bilaterally with no crackles or wheezes. ABD: Soft, non tender, non distended. PSYCH: Good eye contact, speech is not pressured. Const Vital Signs, click to edit/add: Vital Signs - 24 hr 03/05/25 18:12 Temperature 100.8 F H Pulse Rate [Pulse Oximeter] 116 H Respiratory Rate 16 Blood Pressure [Right Upper Arm] 130/86 Pulse Oximetry 96 Oxygen Delivery Method Room Air Course Course ED Course: Patient seen and examined. I did give him a L of normal saline. I do not believe further laboratory testing would be helpful. This time I did encourage him to take his amoxicillin as previously prescribed. Rotate Tylenol Motrin get plenty of rest drink plenty of fluids. He is clearly outside the window for Tamiflu and Tamiflu is limited in his availability at this time. Vital Signs Vital signs: Initial Vital Signs Temperature 100.8 F H 03/05/25 18:12 Temperature Source Temporal Artery Scan 03/05/25 18:12 Pulse Rate 116 H 03/05/25 18:12 Respiratory Rate 16 03/05/25 18:12 Blood Pressure 130/86 03/05/25 18:12 Blood Pressure Mean 100 03/05/25 18:12 Pulse Oximetry 96 03/05/25 18:12 Oxygen Delivery Method Room Air 03/05/25 18:12 Vital Signs Temperature 100.8 F H 03/05/25 18:12 Pulse Rate 116 H 03/05/25 18:12 Respiratory Rate 16 03/05/25 18:12 Blood Pressure 130/86 03/05/25 18:12 Pulse Oximetry 96 03/05/25 18:12 Oxygen Delivery Method Room Air 03/05/25 18:12 Temperature 100.8 F H 03/05/25 18:12 Pulse Rate 116 H 03/05/25 18:12 Respiratory Rate 16 03/05/25 18:12 Blood Pressure 130/86 03/05/25 18:12 Pulse Oximetry 96 03/05/25 18:12 Oxygen Delivery Method Room Air 03/05/25 18:12 Discharge Plan Discharge Clinical Impression: Otitis media, Influenza Patient Disposition: Home, Self-Care Condition: Stable Instructions: Influenza (ED), Ear Infection (ED) Additional Instructions: Take antibiotics as previously prescribed Tylenol Motrin Rest Activity Level: No Restrictions Discharge Diet: Regular Follow Up/Referrals: Provider,Not a Local [Primary Care Provider, Family Practice] Stand Alone Forms: MyHealth Info Instructions
== END 2025-03-05 19:15 | disposition home or self-care (01) ==
PROVIDERS: Emergency Provider Internal Medicine
DX: H66.93 Otitis media, unspecified, bilateral (principal); J10.1 Influenza due to other identified influenza virus with other respiratory manifestations
CPT/HCPCS: 96360; 99283; J7030